=== PATIENT | male | born 1945 | race Caucasian/White ===

== ENCOUNTER 2017-10-13 12:20 | Day surgery (SDC) | payer MEDICAID, MEDICARE ==
[2017-10-13] MEDS ORDERED: MIDAZOLAM HCL 2MG/2ML VIAL IV ONE (12:21)
[2017-10-13] MEDS ORDERED: PROPOFOL 10 MG/ML VIAL IV ONE (12:21)
[2017-10-13] MEDS ORDERED: LIDOCAINE 2% MDV (20MG/ML) 20ML VIAL IV ONE (12:21)
--- NOTE | 2017-10-14 12:50 | Operative Note ---
Dictated by Dr. Camilo Murry for Dr. Arriola DATE OF SURGERY: 10/13/2017 PREOPERATIVE DIAGNOSIS: History of colon polyps. POSTOPERATIVE DIAGNOSES: 1. Two 2 mm ascending colon polyps, status post cold forceps polypectomy. 2. Two 3-5 mm sigmoid colon polyps, status post cold forceps and cold snare polypectomy. 3. Moderate sigmoid diverticulosis. 4. Small internal hemorrhoids. OPERATION: COLONOSCOPY with cold forceps and cold snare polypectomy. ENDOSCOPIST: Lucius Arriola DO ENGINEERING SCIENTIST: Dr. Camilo Murry ANESTHESIA: Anesthesia as performed by the anesthesia department. COMPLICATIONS: None. INDICATIONS FOR PROCEDURE: A 72-year-old male presents with history of colon polyps. The patient's last colonoscopy was 2008 in which patient had a colon polyp at the time. The patient denies any GI bleeding, family history of GI malignancy, weight loss, or changes in bowel habits. PROCEDURE: Procedure was thoroughly explained to the patient including risks, benefits, and alternatives. The patient had opportunity to have questions answered. Patient agreed to procedure and signed written informed consent. The patient was brought to the endoscopy suite and was placed on the left lateral decubitus position. Anesthesia was begun. Digital rectal exam was performed which was unremarkable. Procedure begun with introduction of a well-lubricated Olympus [id number] colonoscope to rectum and was advanced into cecum which was identified by ileocecal valve and appendiceal orifice. Scope was withdrawn back slowly from cecum to ascending colon to transverse colon to descending colon to sigmoid colon to rectum. There was a 2 mm colon polyp in ascending colon which was removed with cold forceps polypectomy and was retrieved completely. Two sigmoid polyps measuring 2-5 mm were noted in sigmoid colon, which was resected using cold snare and cold forceps polypectomy and retrieved completely. There was moderate sigmoid diverticulosis that was noted. Retroflexion at the rectum revealed small internal hemorrhoids. Scope was placed back into neutral position and was removed completely. Patient tolerated the procedure well without any immediate complications. RECOMMENDATION: 1. Await pathology report. 2. Repeat colonoscopy in 3 years if all polyps are adenomatous. Repeat in 5 years if otherwise. As always, thank you for allowing me to participate in the care of your patient. CC: Dr. Andrew AMIN
== END 2017-10-13 15:00 | disposition home or self-care (01) ==
LOC: HOP 12:20
PROVIDERS: ATTEND Internal Medicine Gastroenterology
DX: Z12.11 Encounter for screening for malignant neoplasm of colon (principal); Z86.010 Personal history of colon polyps; K63.5 Polyp of colon; K57.30 Diverticulosis of large intestine without perforation or abscess without bleeding; K64.8 Other hemorrhoids; E78.00 Pure hypercholesterolemia, unspecified; I10 Essential (primary) hypertension